=== PATIENT | female | born 1980 | race Caucasian/White ===

== ENCOUNTER → 2020-10-17 08:34 | Outpatient (CLI) | payer OTHER, SELFPAY ==
[2020-10-17 12:14] LABS: COVID19 -Nasal RAPID Negative (Negative)
== END ==
PROVIDERS: Visit Provider Nurse Practitioner
DX: Z20.822 Contact with and (suspected) exposure to COVID-19 (principal); R51.9 Headache, unspecified
CPT/HCPCS: 87635

== ENCOUNTER → 2024-12-05 13:19 | Outpatient (CLI) | payer OTHER, SELFPAY ==
[2024-12-05 14:32] LABS: Influenza A - CEPHEID Flu A NEGATIVE (NEGATIVE); Influenza B - CEPHEID Flu B NEGATIVE (NEGATIVE)
[2024-12-05 14:33] LABS: COVID-19 CEPHEID 4-PLEX PCR Negative (Negative)
== END ==
PROVIDERS: Visit Provider Physician Assistant
DX: J02.9 Acute pharyngitis, unspecified (principal)
CPT/HCPCS: 87637